=== PATIENT | female | born 1955 | race Native Hawaiian/Other Pacific Islander ===

== ENCOUNTER 2016-09-13 09:39 | Emergency (ER) | payer OTHER ==
[2016-09-13 10:22] VITALS: TEMP 97.2
--- NOTE | 2016-09-13 10:34 | ED PDOC ---
Syncope/Near Syncope/Dizziness Time Seen by Provider: 09/13/16 10:08 Chief Complaint (Nursing): Dizziness/Lightheaded History Per: Patient Additional Complaint(s): 61 yo female, PMH of HTN, Hypothyroid and DM, presents to ED with complaints of dizziness and elevated B/P since approx 0850 this morning. states while going up the stairs at work she felt very dizzy. denies any headache, chest pain or SOB. states dizziness is worse when standing. Pt works at [employer] and reports that she took her BP and was 180s/80s Past Medical History Reviewed: Nursing Documentation, Vital Signs Vital Signs: Last Vital Signs Temp 97.2 F L 09/13/16 10:11 Pulse 57 L 09/13/16 10:11 Resp 18 09/13/16 10:11 BP 159/92 H 09/13/16 10:11 Pulse Ox 98 09/13/16 10:11 - Medical History PMH: Diabetes, HTN, Hypothyroidism - Surgical History Surgical History: Other surgeries: Pparathyroidectomy - Family History Family History: States: Unknown Family Hx - Living Arrangements Living Arrangements: With Family - Social History Current smoker - smoking cessation education provided: No Alcohol: None Drugs: Denies - Allergies Allergies/Adverse Reactions: Allergies Allergy/AdvReac Type Severity Reaction Status Date / Time No Known Allergies Allergy Verified 09/13/16 10:10 Review of Systems ROS Statement: Except As Marked, All Systems Reviewed And Found Negative Neurological: Positive for: Dizziness Physical Exam - Reviewed Nursing Documentation Reviewed: Yes Vital Signs Reviewed: Yes - Physical Exam Appears: Positive for: Well, Non-toxic, No Acute Distress Head Exam: Positive for: ATRAUMATIC, NORMAL INSPECTION, NORMOCEPHALIC Skin: Positive for: Normal Color, Warm, DRY Eye Exam: Positive for: EOMI, Normal appearance, PERRL ENT: Positive for: Normal ENT Inspection Neck: Positive for: Normal, Painless ROM Cardiovascular/Chest: Positive for: Regular Rate, Rhythm Respiratory: Positive for: CNT, Normal Breath Sounds Gastrointestinal/Abdominal: Positive for: Normal Exam, Bowel Sounds, Soft Back: Positive for: Normal Inspection Extremity: Positive for: Normal ROM Neurologic/Psych: Positive for: Alert, Oriented - Laboratory Results Result Diagrams: 09/13/16 10:51 09/13/16 10:51 - ECG O2 Sat by Pulse Oximetry: 98 Medical Decision Making Medical Decision Making: IV access established and diagnostics ordered 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
[2016-09-13 10:57] VITALS: BP 136/59; PULSE 58; RESP 20
[2016-09-13 11:00] LABS: BASO % 0.1 % (0.0-2.0); EOS # 0.3 K/uL (0.0-0.7); EOS % 4.1 % (0.0-4.0); HEMOGLOBIN 14.1 g/dL (12.0-16.0); LYMPH # 1.9 K/uL (1.0-4.3); MEAN CELL VOLUME 84.7 fl (81.0-99.0); MEAN CORPUSCULAR HEMOGLOBIN 29.1 pg (27.0-31.0); MEAN CORPUSCULAR HGB CONC 34.3 g/dL (33.0-37.0); MEAN PLATELET VOLUME 7.8 fl (7.2-11.7); MONO # 0.5 K/uL (0.0-0.8); MONO % 7.2 % (0.0-10.0); NEUT # 4.2 K/uL (1.8-7.0); NEUT % 60.6 % (50.0-75.0); NRBC % 0.1 % (0.0-0.0); RBC 4.84 Mil/uL (3.80-5.20); RED CELL DISTRIBUTION WIDTH 13.1 % (11.5-14.5); WHITE BLOOD COUNT 6.9 K/uL (4.8-10.8)
--- NOTE | 2016-09-13 11:13 | RAD ---
HISTORY: med screening COMPARISON: Chest x-ray performed 10/11/12 TECHNIQUE: Chest, one view. FINDINGS: Small metallic clips project over the neck possibly related to prior thyroid surgery. Correlate clinically. Examination limited by habitus. External cardiac monitoring leads. LUNGS: No focal consolidation. Please note that chest x-ray has limited sensitivity for the detection of pulmonary masses. PLEURA: No significant pleural effusion identified. No definite pneumothorax . CARDIOVASCULAR: Heart size appears top normal. OSSEOUS STRUCTURES: Degenerative changes. VISUALIZED UPPER ABDOMEN: Unremarkable. OTHER FINDINGS: None. IMPRESSION: No acute findings. See above.
[2016-09-13 11:20] LABS: ALB/GLOB RATIO 1.2 (1.0-2.1); ALBUMIN 4.5 g/dL (3.5-5.0); ALT/SGPT 36 U/L (9-52); AST/SGOT 30 U/L (14-36); BLOOD UREA NITROGEN 26 mg/dl (7-17); CALCIUM 9.8 mg/dL (8.4-10.2); GFR AFRICAN-AMERICAN > 60; GFR NON-AFRICAN AMERICAN > 60
[2016-09-13 11:46] LABS: SQUAMOUS EPITHIAL < 1 /hpf (0-5); URINE BILIRUBIN NEGATIVE (NEGATIVE); URINE BLOOD NEGATIVE (NEGATIVE); URINE CLARITY CLEAR (Clear); URINE COLOR YELLOW (YELLOW); URINE GLUCOSE (UA) NEG (Normal); URINE LEUKOCYTE ESTERASE NEG Leu/uL (Negative); URINE NITRATE NEGATIVE (NEGATIVE); URINE PROTEIN NEGATIVE (NEGATIVE); URINE UROBILINOGEN 0.2-1.0 mg/dL (0.2-1.0)
[2016-09-13 11:53] LABS: PARTIAL THROMBOPLASTIN TIME 35.7 Seconds (25.6-37.1); PROTHROMBIN TIME 10.7 Seconds (9.8-13.1)
[2016-09-13 12:07] VITALS: O2SAT 98
--- NOTE | 2016-09-14 11:40 | CARD ---
APPROVED REPORT EKG Measurement Heart [id number] <Conclusion> Sinus bradycardia Otherwise normal ECG
== END 2016-09-13 12:03 | disposition home or self-care (01) ==
LOC: H.ER 09:39
DX: R42 Dizziness and giddiness (principal); E03.9 Hypothyroidism, unspecified; E11.9 Type 2 diabetes mellitus without complications; I10 Essential (primary) hypertension